=== PATIENT | female | born 1955 | race Caucasian/White ===

== ENCOUNTER → 2016-07-01 | Day surgery (SDC) | payer MEDICARE ==
[~2016-07-01] VITALS: Ht 165.1 cm; Wt 66.2 kg
[~2016-07-01] MED LIST: AMBIEN5 MG ORAL; AMITRIPTYLINE75 MG ORAL; ATORVASTATIN CA40 MG ORAL; BETHANECHOL CHL25 MG ORAL; Bupivacaine 0.25% Inj 30ml INJ ONE; DILAUDID1 MG/1 ML IV; Depo-Medrol 40mg Inj IARTIC ONE; Depo-Medrol 80mg Vial ONE; HYQVIA IV; LEXAPRO20 MG ORAL; METFORMIN HCL500 M1 ORAL; METHADONE HCL5 MG PO; XANAX1 MG ORAL
--- NOTE | 2016-07-01 09:09 | Short Stay Surgery H&P ---
History of Present Illness History of Present Illness HPI Josefina Hamilton is a 60 year old female who was admitted on for Ddd Cervical With Radiculopathy Patient History Allergies: Coded Allergies: PENICILLINS (Verified Allergy, Unknown, 07/01/16) PAST MEDICAL HISTORY: (1) Chronic pain (2) Cervical spinal stenosis (3) Cervical radiculopathy Past Surgeries: Social History: Medication History Scheduled Amitriptyline HCl (Elavil*), 150 MG ORAL BEDTIME, (Reported) Atorvastatin Calcium* (Atorvastatin Calcium*), 40 MG ORAL BEDTIME, (Reported) Bethanechol Chl* (Bethanechol Chloride*), 25 MG ORAL BID, (Reported) Escitalopram Oxalate* (Lexapro*), 20 MG ORAL DAILY, (Reported) Hydromorphone Hcl (Dilaudid), 2 MG IV PRN, (Reported) IgG/Hyaluronidase,Recombinant (Hyqvia 5 gm/400 Unit Vial), 5 GM IV Q3WK, ( Reported) Metformin Hcl* (Metformin Hcl*), 500 MG ORAL TWICE A DAY, (Reported) Methadone Hcl* (Methadone*), 5 MG PO DAILY, (Reported) Scheduled PRN Alprazolam* (Xanax*), 1 TAB ORAL TID PRN for PRN Agitation/Anxiety, (Reported) Zolpidem Tartrate* (Ambien*), 5 MG ORAL BEDTIME PRN for Insomnia, (Reported) Physical Exam Skin: normal HENT: normal Heart: normal Lungs: normal Abdomen: normal Extremities: normal Genitourinary: normal Plan Plan of Care cervical epidural steroid injection under fluoroscopy Preop Interventions MRI cervical spine pt, ptt, cbc with diff (reviewed) Final Diagnosis: (1) Degenerative disc disease, cervical (2) Cervical spinal stenosis (3) Chronic pain (4) Cervical radiculopathy Attestation Are the patient's medical conditions optimized for surgery? Attestation Response: yes YOHANA ARZATE Jul 01, 2016 09:09
[2016-07-01 09:30] VITALS: BP 160/81
[2016-07-01 10:30] VITALS: BP 137/92
--- NOTE | 2016-07-01 10:35 | Discharge Instructions ---
Discharge Instructions Discharge Instructions Call MD/Return to Hospital if: bleeding, swelling, fever, weakness, numbness Diet: no concentrated sweets, regular Resume Normal Activity?: Yes Activity: up ad janice For Surgical Patients Clean and Dry: surgical site Dressing Care: keep dry and clean May shower: Yes Contact your physician for: bleeding, pain, tenderness, redness, swelling, yellowish discharge in the op. site For Congestive Heart Failure Reminder Report to your physician any weight gain of 5 pounds or more in one week. YOHANA ARZATE Jul 01, 2016 10:35
--- NOTE | 2016-07-01 18:18 | Procedure Note ---
DATE OF PROCEDURE: 07/01/2016 PRE-PROCEDURE DIAGNOSIS: Degenerative disk disease, cervical with radiculopathy. POSTPROCEDURE DIAGNOSIS: Degenerative disk disease, cervical with radiculopathy. PROCEDURE PERFORMED: Cervical epidural steroid injection under fluoroscopy. SURGEON: Marie Hughes M.D. PROCEDURE IN DETAIL: The patient was warned of risks, benefits were discussed, and questions were answered. The patient indicated that she understood and accepted the risks including not only those involved in the risk of a blunt procedure itself but also those regarding the use of x-ray contrast agent, radiation, nerve damage, bleeding, and . The patient was transported to the radiology suite and placed in a prone position on the fluoroscopic compatible table with cervical spine flexed and forehead placed on a padded pillow. The skin was prepped with antiseptic solution at C5-C6 interspace. The spinous processes were located with the middle finger and index finger on either side and reconfirmed with palpation using a rocking motion in superior and inferior planes. The midline of C5-C6 interspace was identified by palpating the spinous processes above and below using lateral rocking motion to ensure that the needle entry site was exactly in the midline. A 1% lidocaine methylparaben free 1 mL was used to infiltrate the skin at midline. A 3-1/2 inch 20-gauge Tuohy needle was inserted through the previously anesthetized area. A syringe with preservative free normal saline was attached holding firmly to the half of epidural needle with the left hand and placed firmly against the patient's neck. Constant pressure was applied to the plunger of the syringe with the right hand. The needle and the syringe were continually advanced in a slow deliberate motion with the left hand. There was a loss of resistance. Gentle aspiration revealed no CSF or heme, and there was no paresthesia noted. A syringe containing 0.25% Marcaine and 80 mg of Depo-Medrol was instilled in the epidural space following confirmation with Isovue-300 to make an epidurogram. The needle was removed without incident while flushing with preservative free normal saline. There was no residual motor or sensory deficit appreciated. The patient tolerated the procedure well without incident. The patient was transported to short stay surgery for monitoring and given instructions for discharge when stable. Radiological technical assistance only was provided. Marie Hughes M.D. DR: NIGEL JOB#: [id number] CC:
== END | disposition home or self-care (01) ==
LOC: SDS 08:37
DX: M50.10 Cervical disc disorder with radiculopathy, unspecified cervical region (principal); M48.02 Spinal stenosis, cervical region; G89.29 Other chronic pain; Z88.0 Allergy status to penicillin
CPT/HCPCS: 62321; 77003; J1040; J3490

== ENCOUNTER → 2016-07-15 | Day surgery (SDC) | payer MEDICARE ==
[~2016-07-15] VITALS: Ht 165.1 cm; Wt 65.8 kg
[~2016-07-15] MED LIST changes: +Atropine Inj 1mg/10ml Syr IV PRN; -Bupivacaine 0.25% Inj 30ml INJ ONE; +Bupivacaine 0.5% Inj 30 ml vial INJ ONE; -Depo-Medrol 40mg Inj IARTIC ONE; +Depo-Medrol 40mg Inj INJ ONE; +Depo-Medrol 80mg Vial INJ ONE; -Depo-Medrol 80mg Vial ONE; +EPINEPHrine 1mg/10ml carp IV PRN; +Hydrocortisone 100mg Inj IV PRN; +Isovue-M 300 INJ ONE; +Lidocaine/Epi 1% 10ml vial INJ ONE
--- NOTE | 2016-07-15 09:10 | Short Stay Surgery H&P ---
History of Present Illness History of Present Illness HPI Josefina Hamilton is a 60 year old female who was admitted on for Ddd Cervical With Radiculopathy. She underwent a cervical epidural steroid injection on 2016. She is here for the second in a series of three . Patient History Allergies: Coded Allergies: PENICILLINS (Verified Allergy, Unknown, 07/01/16) PAST MEDICAL HISTORY: (1) Cervical spinal stenosis (2) Chronic pain (3) Cervical radiculopathy (4) Degenerative disc disease, cervical Past Surgeries: Social History: Medication History Scheduled Amitriptyline HCl (Elavil*), 150 MG ORAL BEDTIME, (Reported) Atorvastatin Calcium* (Atorvastatin Calcium*), 40 MG ORAL BEDTIME, (Reported) Bethanechol Chl* (Bethanechol Chloride*), 25 MG ORAL BID, (Reported) Escitalopram Oxalate* (Lexapro*), 20 MG ORAL DAILY, (Reported) Hydromorphone Hcl (Dilaudid), 2 MG IV PRN, (Reported) IgG/Hyaluronidase,Recombinant (Hyqvia 5 gm/400 Unit Vial), 5 GM IV Q3WK, ( Reported) Metformin Hcl* (Metformin Hcl*), 500 MG ORAL TWICE A DAY, (Reported) Scheduled PRN Alprazolam* (Xanax*), 1 TAB ORAL TID PRN for PRN Agitation/Anxiety, (Reported) Zolpidem Tartrate* (Ambien*), 5 MG ORAL BEDTIME PRN for Insomnia, (Reported) Discontinued Medications Methadone Hcl* (Methadone*), 5 MG PO DAILY, (Reported) Discontinued Reason: Pt stopped taking med Review of Systems Skeletal: Reports: osteroarthritis Genitourinary: Reports: other - interstial cystitis Neurologic: Reports: neuropathy, other - schwanoma Endocrine: Reports: diabetes - type 2 Physical Exam Vital Signs Last Vital Signs Date Time Temp Pulse Resp B/P Pulse Ox O2 Delivery O2 Flow Rate FiO2 07/15/16 09:12 98.4 92 18 136/92 98 Room Air Skin: normal HENT: normal Heart: normal Lungs: normal Abdomen: normal Extremities: abnormal - decreased strength left upper extremity Genitourinary: normal Plan Plan of Care cervical epidural steroid injection under fluoroscopy #2 Summary of Findings cervical stenosis with radiculopathy Final Diagnosis: (1) Cervical spinal stenosis (2) Chronic pain (3) Cervical radiculopathy (4) Degenerative disc disease, cervical Attestation Are the patient's medical conditions optimized for surgery? Attestation Response: yes YOHANA ARZATE Jul 15, 2016 09:10
[2016-07-15 09:12] VITALS: BP 136/92
[2016-07-15 10:05] VITALS: BP 161/104
[2016-07-15 10:20] VITALS: BP 143/92
--- NOTE | 2016-07-15 10:29 | Discharge Instructions ---
Discharge Instructions Discharge Instructions Follow up with: Dr. Hughes at [facility] Hematology/Oncology in one week Call MD/Return to Hospital if: there are any questions Diet: regular Resume Normal Activity?: Yes Activity: up ad janice For Surgical Patients Clean and Dry: surgical site Dressing Care: may change May shower: Yes Contact your physician for: bleeding, pain, tenderness, redness, swelling, yellowish discharge in the op. site For Congestive Heart Failure Reminder Report to your physician any weight gain of 5 pounds or more in one week. YOHANA HUGHES Jul 15, 2016 10:29
--- NOTE | 2016-07-15 16:18 | Procedure Note ---
DATE OF PROCEDURE: 07/15/2016 PREPROCEDURE DIAGNOSES: 1. Degenerative disease. 2. Cervical stenosis with radiculopathy. POSTPROCEDURE DIAGNOSES: 1. Degenerative disease. 2. Cervical stenosis with radiculopathy. PROCEDURE PERFORMED: Cervical epidural steroid injection under fluoroscopy. SURGEON: Marie Hughes M.D. PROCEDURE IN DETAIL: The patient was warned of the risks. Benefits were discussed. Questions were answered. The patient indicated that she understood and accepted the risks including not only those involving the risk of the block procedure itself but also those regarding use x-ray contrast agent, radiation, nerve damage, bleeding and . The patient was transported to the radiology suite and placed in the prone position on the fluoroscopic compatible table. The cervical spine flexed and forehead placed on a padded pillow. The skin was prepped with antiseptic solution at C5-C6 interspace. The spinous processes were located with a middle finger and index finger on either side and reconfirmed with palpation using a rocking motion in the superior and inferior planes. The midline of C5-C6 interspace was identified by palpating the spinous process above and below using a lateral rocking motion to ensure the needle entry was exactly in the midline. The syringe with 1% lidocaine methylparaben free, 1 mL was used to infiltrate the skin at the midline. At 3.5 inch 22-gauge Tuohy needle was inserted through the previously anesthetized area. A syringe with preservative free normal saline was attached, holding firmly to the hub of the epidural needle with the left hand placed firmly against the patient's neck. Constant pressure was applied to the plunger of the syringe with the right hand. The needle and syringe were continuously advanced in a slow deliberate motion with the left hand. There was loss of resistance. Gentle aspiration revealed no CSF or heme and there was no paresthesia noted. A syringe containing 0.5% Marcaine plus 40 mg of Depo-Medrol was instilled in the epidural space following conformation with Isovue-300 to make an epidurogram. The needle was removed without incident while flushing with preservative free normal saline. There were no residual motor or sensory deficits appreciated. The patient tolerated the procedure well without incident. The patient was transported to short stay surgery for monitoring and given instructions for discharge when stable. Radiological technical assistance only was provided. Marie Hughes M.D. DR: Cindy JOB#: [id number] CC:
== END | disposition home or self-care (01) ==
LOC: SDS 08:56
DX: M50.10 Cervical disc disorder with radiculopathy, unspecified cervical region (principal); M48.02 Spinal stenosis, cervical region; G89.29 Other chronic pain; M19.90 Unspecified osteoarthritis, unspecified site; N30.10 Interstitial cystitis (chronic) without hematuria; E11.9 Type 2 diabetes mellitus without complications; D36.10 Benign neoplasm of peripheral nerves and autonomic nervous system, unspecified; Z88.0 Allergy status to penicillin
CPT/HCPCS: 62321; 77003; J1030; J3490; 62320; 62322

== ENCOUNTER 2016-08-19 08:42 | Day surgery (SDC) | payer MEDICARE ==
--- NOTE | 2016-07-29 09:16 | Short Stay Surgery H&P ---
History of Present Illness History of Present Illness HPI Josefina Hamilton is a 60 year old female who was admitted on for DDD Cervical W/ Radiculopathy. She underwent a Cervical Epidural steroid injection under fluoroscopy X 2 with transient pain relief. Here for 3rd in a series of 3. Patient gives history of minor excoriation and trauma to her right hand yesterday causing prolonged bleeding with swelling, redness, increased temperature locally and ecchymosis. Denies pain at this writing. Patient is scheduled to received IGG in one week. Patient History Allergies: Coded Allergies: PENICILLINS (Verified Allergy, Unknown, 07/01/16) PAST MEDICAL HISTORY: (1) Cervical spinal stenosis (2) Chronic pain (3) Cervical radiculopathy (4) Degenerative disc disease, cervical Past Surgeries: Social History: Medication History Scheduled Amitriptyline HCl (Elavil*), 150 MG ORAL BEDTIME, (Reported) Atorvastatin Calcium* (Atorvastatin Calcium*), 40 MG ORAL BEDTIME, (Reported) Bethanechol Chl* (Bethanechol Chloride*), 25 MG ORAL BID, (Reported) Escitalopram Oxalate* (Lexapro*), 20 MG ORAL DAILY, (Reported) Hydromorphone Hcl (Dilaudid), 2 MG IV PRN, (Reported) IgG/Hyaluronidase,Recombinant (Hyqvia 5 gm/400 Unit Vial), 5 GM IV Q3WK, ( Reported) Metformin Hcl* (Metformin Hcl*), 500 MG ORAL TWICE A DAY, (Reported) Scheduled PRN Alprazolam* (Xanax*), 1 TAB ORAL TID PRN for PRN Agitation/Anxiety, (Reported) Zolpidem Tartrate* (Ambien*), 5 MG ORAL BEDTIME PRN for Insomnia, (Reported) Review of Systems Cardiovascular: Reports: other - hypercholesterolemia Respiratory: Reports: asthma, chronic bronchitis, other - wheezing, pneumonia Skeletal: Reports: other - bone cancer, back surgery, spinal disc disease, trauma Gastrointestinal: Reports: other - colitis, abdominal surgery Genitourinary: Reports: other - interstitial cystitis Physical Exam Skin: abnormal - erythematous,edematous,hot, dorsum of the right hand with local scattering of flat eccymotic lesions. no evidence of bleeding at this writing HENT: normal Heart: normal Lungs: normal Abdomen: normal Extremities: abnormal - right hand dorsal aspect with erythema and localized scattering flat ecchymotic lesions and edema, and hot Genitourinary: normal Plan Plan of Care reschedule CESB under fluoroscopy Preop Interventions CBC with diff, PT, PTT Summary of Findings right hand cellulitis following mild trauma, acute episode of prolonged bleeding , DDD Cervical with radiculopathy Final Diagnosis: (1) Cellulitis of right hand (2) History of coagulation defect (3) Degenerative disc disease, cervical (4) Cervical radiculopathy (5) Chronic pain (6) Cervical spinal stenosis Attestation Are the patient's medical conditions optimized for surgery? Attestation Response: YOHANA Castellanos Jul 29, 2016 09:16
--- NOTE | 2016-07-29 10:08 | Discharge Instructions ---
Discharge Instructions Discharge Instructions Follow up with: primary care physician, Dr. More Etienne [facility] at Discharge: outpatient therapy Activity: up ad janice Follow Up Orders follow up with Dr. Hughes in 2weeks. see Dr. Etienne LÓPEZ regarding cellulitis following mild trauma to right hand For Congestive Heart Failure Reminder Report to your physician any weight gain of 5 pounds or more in one week. YOHANA HUGHES Jul 29, 2016 10:08
[~2016-08-19] VITALS: Ht 165.1 cm; Wt 65.3 kg
[~2016-08-19 08:42] MED LIST changes: -Atropine Inj 1mg/10ml Syr IV PRN; -Bupivacaine 0.5% Inj 30 ml vial INJ ONE; -Depo-Medrol 40mg Inj INJ ONE; -Depo-Medrol 80mg Vial INJ ONE; -EPINEPHrine 1mg/10ml carp IV PRN; -Hydrocortisone 100mg Inj IV PRN; -Isovue-M 300 INJ ONE; -Lidocaine/Epi 1% 10ml vial INJ ONE
[2016-08-19] MEDS ORDERED: Depo-Medrol 40mg Inj IARTIC ONE (08:45)
[2016-08-19] MEDS ORDERED: Depo-Medrol 80mg Vial IARTIC ONE (08:45)
[2016-08-19] MEDS ORDERED: Bupivacaine 0.25% Inj 30ml INJ ONE ×2 (08:45→10:15)
[2016-08-19 09:16] VITALS: BP 123/83
--- NOTE | 2016-08-19 10:10 | Short Stay Surgery H&P ---
History of Present Illness History of Present Illness HPI Josefina Hamilton is a 60 year old female who was admitted on for Ddd Cerv W/ Radiculopathy Patient History Allergies: Coded Allergies: PENICILLINS (Verified Allergy, Unknown, 07/01/16) PAST MEDICAL HISTORY: (1) Cervical spinal stenosis (2) Chronic pain (3) Cervical radiculopathy (4) Degenerative disc disease, cervical (5) Cellulitis of right hand (6) History of coagulation defect Past Surgeries: Social History: Medication History Scheduled Amitriptyline HCl (Elavil*), 150 MG ORAL BEDTIME, (Reported) Atorvastatin Calcium* (Atorvastatin Calcium*), 40 MG ORAL BEDTIME, (Reported) Bethanechol Chl* (Bethanechol Chloride*), 25 MG ORAL BID, (Reported) Escitalopram Oxalate* (Lexapro*), 20 MG ORAL DAILY, (Reported) Hydromorphone Hcl (Dilaudid), 2 MG IV PRN, (Reported) IgG/Hyaluronidase,Recombinant (Hyqvia 5 gm/400 Unit Vial), 5 GM IV Q3WK, ( Reported) Metformin Hcl* (Metformin Hcl*), 500 MG ORAL TWICE A DAY, (Reported) Scheduled PRN Alprazolam* (Xanax*), 1 TAB ORAL TID PRN for PRN Agitation/Anxiety, (Reported) Zolpidem Tartrate* (Ambien*), 5 MG ORAL BEDTIME PRN for Insomnia, (Reported) Review of Systems Cardiovascular: Reports: other - hyperlipidemia Respiratory: Reports: asthma, chronic bronchitis Skeletal: Reports: other - bone cancer Gastrointestinal: Reports: other - colitis Genitourinary: Reports: other - interstitial cystitis Hematologic: Reports: coagulopathy - intermittent Physical Exam Vital Signs Last Vital Signs Date Time Temp Pulse Resp B/P Pulse Ox O2 Delivery O2 Flow Rate FiO2 08/19/16 09:16 98.2 86 18 123/83 100 Room Air Labs ptt 28 pt 9.7 inr 1.0 Skin: abnormal - ecchymotic lesions on body throughout HENT: normal - wears corrective lenses Heart: normal Lungs: normal Abdomen: normal Extremities: normal Genitourinary: normal Plan Plan of Care cervical epidural steroid injection under fluoroscopy Final Diagnosis: (1) Cervical spinal stenosis (2) Chronic pain (3) Cervical radiculopathy (4) Degenerative disc disease, cervical (5) Cellulitis of right hand (6) History of coagulation defect Attestation Are the patient's medical conditions optimized for surgery? Attestation Response: yes YOHANA ARZATE August 19, 2016 10:10
[2016-08-19] MEDS ORDERED: Depo-Medrol 40mg Inj ONE (10:14)
[2016-08-19 10:45] VITALS: BP 138/87
--- NOTE | 2016-08-19 10:51 | Discharge Instructions ---
Discharge Instructions Discharge Instructions Follow up with: dr. indira arzate at [facility] Diet: regular Resume Normal Activity?: Yes Activity: up ad janice For Surgical Patients Clean and Dry: surgical site Dressing Care: may change May shower: Yes Contact your physician for: bleeding, pain, tenderness, redness, swelling, yellowish discharge in the op. site For Congestive Heart Failure Reminder Report to your physician any weight gain of 5 pounds or more in one week. INDIRA ARZATE August 19, 2016 10:51
--- NOTE | 2016-08-19 18:28 | Procedure Note ---
DATE OF PROCEDURE: 08/19/2016 PRE-PROCEDURE DIAGNOSIS: Degenerative disk disease, cervical with radiculopathy. POST-PROCEDURE DIAGNOSIS: Degenerative disk disease, cervical with radiculopathy. PROCEDURE PERFORMED: Cervical epidural steroid injection under fluoroscopy. SURGEON: Marie Hughes M.D. PROCEDURE IN DETAIL: The patient was warned of the risks, benefits were discussed, and questions were answered. The patient indicated that she understood and accept the risks including not only those involving the risk of the procedure itself, but also those regarding the use x-ray contrast agent, radiation, nerve damage, bleeding and . The patient was transported to the radiology suite and placed in the prone position on the fluoroscopic compatible table. The cervical spine was flexed and forehead placed on a padded pillow. The skin was prepped with antiseptic solution at C5-C6 interspace. The spinous processes were located with middle finger and index finger on either side and reconfirmed with palpation using a rocking motions in superior and inferior planes. The midline of C5-C6 interspace was identified by palpating the spinous process above and below using lateral rocking motion to ensure needle entry was exactly in the midline. A syringe with 1% lidocaine methylparaben free 1 mL was used to infiltrate the skin at the midline. A 3.5 inch 22-gauge two needle was inserted through the previously anesthetized area. A glass syringe with preservative free normal saline was attached holding firmly at the hub of the epidural needle with the left hand placed firmly against the patient's neck. Constant pressure was applied to the plunger of the syringe with the right hand. The needle and syringe were continually advanced in a slow deliberate motion with the left hand. There was a loss of resistance. Gentle aspiration revealed no CSF or heme and there was no paresthesia noted. Syringe containing 0.25% Marcaine plus 80 mg of Depo-Medrol was instilled in the epidural space following confirmation with Isovue-300 to make an epidurogram. The needle was removed without incident while flushing with preservative free normal saline. There was no residual motor or sensory deficits appreciated. The patient tolerated the procedure well without incident. The patient was transported to short stay surgery for monitoring and given instructions for discharge when stable. Radiological technical assistance only was provided. Marie Hughes M.D. DR: JERALD JOB#: [id number] CC: LUCERO
--- NOTE | 2016-08-21 10:53 | Diagnostic Imaging Report ---
Indication: Neck pain Comparison: None Findings: Fluoroscopic imaging was utilized in real-time during a cervical epidural procedure performed by Dr.Wynn Butler. Total fluoroscopic time 7.2 seconds. Impression: Intraprocedural imaging
== END 2016-08-19 11:05 | disposition home or self-care (01) ==
LOC: SUR 08:42 → RAD 08:42
DX: M50.10 Cervical disc disorder with radiculopathy, unspecified cervical region (principal); M48.02 Spinal stenosis, cervical region; G89.29 Other chronic pain; E78.00 Pure hypercholesterolemia, unspecified; J45.909 Unspecified asthma, uncomplicated; J42 Unspecified chronic bronchitis; D68.9 Coagulation defect, unspecified; Z87.19 Personal history of other diseases of the digestive system; Z87.01 Personal history of pneumonia (recurrent); Z88.0 Allergy status to penicillin
CPT/HCPCS: 62321; 77003; J1030; J1040; J3490

== ENCOUNTER 2017-07-31 10:40 | Outpatient (CLI) | payer MEDICARE ==
[~2017-07-31] VITALS: Ht 162.6 cm; Wt 65.3 kg
[2017-07-31 11:10] VITALS: BP 134/59
[2017-07-31 11:37] LABS: BASOPHILS % (AUTO) 1.4 % (0.0-2.0); HEMATOCRIT 36.5 % (37.0-47.0); HEMOGLOBIN 11.7 G/DL (12.0-16.0); LYMPHOCYTES % (AUTO) 21.5 % (20.0-45.0); MEAN CORPUSCULAR VOLUME 80 FL (80-99); NEUTROPHILS % (AUTO) 64.1 % (45.0-75.0); PLATELET COUNT 281 K/UL (150-450); RED BLOOD COUNT 4.58 M/UL (4.20-5.40); WHITE BLOOD COUNT 6.5 K/UL (4.8-10.8)
[2017-07-31] MEDS ORDERED: LORazepam Inj 2mg/ml 1ml IV ONE (11:45)
[2017-07-31 11:48] LABS: INR 0.9 (0.9-1.1)
[2017-07-31] MEDS ORDERED: Depo-Medrol 80mg Vial IARTIC ONE (12:00)
[2017-07-31] MEDS ORDERED: Depo-Medrol 40mg Inj IARTIC ONE (12:00)
[2017-07-31] MEDS ORDERED: Bupivacaine 0.5% Inj 30 ml vial INJ ONE (12:00)
[2017-07-31] MEDS ORDERED: Isovue-M 300 15ml INJ ONE (12:00)
[2017-07-31 13:15] VITALS: BP 124/55
--- NOTE | 2017-07-31 13:35 | Discharge Instructions ---
Discharge Instructions Discharge Instructions Follow up with: dr arzate Call MD/Return to Hospital if: bleeding or pain at injection site Diet: diabetic calorie control Resume Normal Activity?: Yes Activity: up ad janice For Surgical Patients Clean and Dry: surgical site Dressing Care: may change May shower: Yes Contact your physician for: bleeding, pain, tenderness, redness, swelling, yellowish discharge in the op. site For Congestive Heart Failure Reminder Report to your physician any weight gain of 5 pounds or more in one week. YOHANA ARZATE Jul 31, 2017 13:35
--- NOTE | 2017-08-02 21:30 | Procedure Note ---
DATE OF PROCEDURE: 07/31/2017 PRE-PROCEDURE DIAGNOSIS: Degenerative disc disease, cervical with radiculopathy. POST-PROCEDURE DIAGNOSIS: Degenerative disc disease, cervical with radiculopathy. PROCEDURE PERFORMED: Cervical epidural steroid injection under fluoroscopy. SURGEON: Marie Hughes M.D. PROCEDURE IN DETAIL: The patient was warned of the risks, benefits were discussed, and questions were answered. The patient indicated that she understood and accepted the risks including not only those involving the risks of procedure itself, but also those regarding the use of x-ray contrast agent, radiation, nerve damage, bleeding, and . The patient was transported to the radiology suite and placed in the prone position on the fluoroscopic compatible table. The cervical spine was flexed and the forehead placed on a padded pillow. The skin was prepped with antiseptic solution at C5-C6 interspace. The spinous processes were located with the middle finger and index finger on either side and reconfirmed with palpation using a rocking motion in the superior and inferior plane. The midline of C5-C6 interspace was identified by palpating the spinous processes above and below using lateral rocking motion to ensure the needle entry was exactly in the midline. A syringe with 1% lidocaine methylparaben free was used to infiltrate the skin at the midline. A 3.5 inch 22-gauge Tuohy needle was inserted through the previously anesthetized area. The glass syringe with preservative free normal saline was attached holding firmly at the hub of the epidural needle with the left hand firmly placed against the patient's neck. Constant pressure was applied to the plunger of the syringe with the right hand. The needle and syringe were continually advanced in a slow deliberate motion with the left hand. There was a loss of resistance. Gentle aspiration revealed no CSF or heme and there was no paresthesia noted. The syringe containing 1ml 0.5% Marcaine plus 120 mg of Depo-Medrol was instilled in the epidural space after confirmation of location with Isovue-300 to make an epidurogram. The needle was removed without incident while flushing with preservative free normal saline. There was no residual motor or sensory deficits appreciated. The patient received 2mg lorazepam intravenously in 1mg alliquota during the procedure and tolerated the procedure well without incident. The patient was transported to short stay surgery for monitoring and given instructions for discharge when stable. Radiological technical assistance only was provided. Marie Hughes M.D. DR: NAVIN JOB#: [id number] CC: LUCERO
== END 2017-07-31 13:35 | disposition home or self-care (01) ==
LOC: SUR 10:40
DX: M50.10 Cervical disc disorder with radiculopathy, unspecified cervical region (principal); M54.2 Cervicalgia; M79.602 Pain in left arm; E11.9 Type 2 diabetes mellitus without complications; I10 Essential (primary) hypertension; Z88.0 Allergy status to penicillin; Z90.89 Acquired absence of other organs; Z98.84 Bariatric surgery status
CPT/HCPCS: 36415; 62320; 77003; 85025; 85610; 85730

== ENCOUNTER 2017-11-21 10:45 | Outpatient (CLI) | payer MEDICARE ==
[~2017-11-21] VITALS: Ht 162.6 cm; Wt 64.4 kg
[2017-11-21] MEDS ORDERED: ASPIR 8181 MG ORAL (11:10)
[2017-11-21] MEDS ORDERED: CYMBALTA60 MG ORAL (11:14)
[2017-11-21] MEDS ORDERED: METFORMIN HCL500 M1 ORAL (11:14)
[2017-11-21] MEDS ORDERED: ATORVASTATIN CA40 MG ORAL (11:14)
[2017-11-21] MEDS ORDERED: CALCIUM600 M1 PO (11:14)
[2017-11-21] MEDS ORDERED: LINZESS145 MCG PO (11:14)
[2017-11-21 11:29] LABS: INR 0.9 (0.9-1.1)
[2017-11-21 11:30] LABS: BASOPHILS % (AUTO) 1.8 % (0.0-2.0); EOSINOPHILS % (AUTO) 2.3 % (0.0-3.0); HEMATOCRIT 43.5 % (37.0-47.0); HEMOGLOBIN 13.8 G/DL (12.0-16.0); LYMPHOCYTES % (AUTO) 25.7 % (20.0-45.0); MEAN CORPUSCULAR VOLUME 83 FL (80-99); MONOCYTES % (AUTO) 8.4 % (1.0-10.0); NEUTROPHILS % (AUTO) 61.8 % (45.0-75.0); PLATELET COUNT 265 K/UL (150-450); RED BLOOD COUNT 5.26 M/UL (4.20-5.40); RED CELL DISTRIBUTION WIDTH 14.6 % (11.6-14.8); WHITE BLOOD COUNT 5.5 K/UL (4.8-10.8)
== END 2017-11-21 11:35 | disposition home or self-care (01) ==
LOC: RAD 10:45
DX: M50.30 Other cervical disc degeneration, unspecified cervical region (principal)
CPT/HCPCS: 36415; 85025; 85610; 85730

== ENCOUNTER 2017-12-19 08:15 | Day surgery (SDC) | payer MEDICARE ==
[~2017-12-19] VITALS: Ht 165.1 cm; Wt 65.3 kg
[~2017-12-19 08:15] MED LIST changes: +ASPIR 8181 MG ORAL; +CALCIUM600 M1 PO; +CYMBALTA60 MG ORAL; +LINZESS145 MCG PO
[2017-12-19 09:25] VITALS: BP 122/68
[2017-12-19] MEDS ORDERED: Isovue-M 300 15ml INJ ONE (09:45)
[2017-12-19] MEDS ORDERED: Bupivacaine 0.5% Inj 30 ml vial INJ ONE ×2 (09:45→10:10)
[2017-12-19] MEDS ORDERED: Lidocaine 1% MPF 10mg/ml 5ml INJ ONE (09:45)
[2017-12-19] MEDS ORDERED: LORazepam Inj 2mg/ml 1ml IV ONE (09:45)
[2017-12-19 09:50] LABS: EOSINOPHILS % (AUTO) 1.8 % (0.0-3.0); HEMATOCRIT 39.3 % (37.0-47.0); HEMOGLOBIN 12.4 G/DL (12.0-16.0); LYMPHOCYTES % (AUTO) 26.3 % (20.0-45.0); MEAN CORPUSCULAR VOLUME 82 FL (80-99); MONOCYTES % (AUTO) 9.1 % (1.0-10.0); NEUTROPHILS % (AUTO) 61.8 % (45.0-75.0); PLATELET COUNT 242 K/UL (150-450); RED BLOOD COUNT 4.77 M/UL (4.20-5.40); WHITE BLOOD COUNT 5.8 K/UL (4.8-10.8)
[2017-12-19] MEDS ORDERED: LORazepam Inj 2mg/ml 1ml ONE (09:53)
[2017-12-19 09:56] LABS: INR 0.9 (0.9-1.1)
[2017-12-19] MEDS ORDERED: Depo-Medrol 80mg Vial ONE (09:56)
[2017-12-19] MEDS ORDERED: Depo-Medrol 40mg Inj ONE (09:56)
[2017-12-19] MEDS ORDERED: Lidocaine 1% MPF 10mg/ml 5ml ONE (09:58)
[2017-12-19] MEDS ORDERED: Depo-Medrol 80mg Vial IARTIC ONE (10:00)
[2017-12-19] MEDS ORDERED: Depo-Medrol 40mg Inj IARTIC ONE (10:00)
[2017-12-19 10:45] VITALS: BP 142/74
--- NOTE | 2017-12-19 17:30 | Procedure Note ---
DATE OF PROCEDURE: 12/19/2017 PRE-PROCEDURE DIAGNOSIS: Degenerative disc disease, cervical with radiculopathy. POST-PROCEDURE DIAGNOSIS: Degenerative disc disease, cervical radiculopathy. PROCEDURE PERFORMED: Cervical epidural steroid injection under fluoroscopy. SURGEON: Marie Hughes M.D. PROCEDURE IN DETAIL: The patient was warned of the risks. Benefits were discussed. Questions were answered. The patient indicated that she understood and accepted the risks including not only those involving the risk of procedure itself, but also those regarding the use of x-ray contrast agents, radiation, nerve damage, bleeding, and . The patient was transported to the radiology suite and placed in the prone position on a fluoroscopic compatible table. The cervical spine was flexed and the forehead was placed on a padded pillow. The skin was prepped with antiseptic solution at C5-C6 interspace. Spinous processes were located with a middle finger and index finger on either side and reconfirmed with palpation using a rocking motion in superior and inferior planes. The midline of C5-C6 interspace was identified by palpating the spinous processes above and below using a lateral rocking motion to ensure needle entry was exactly in the midline. The syringe with 1% lidocaine methylparaben free was used to infiltrate the skin at midline. A 3.5 inch 22-gauge Tuohy needle was inserted through the previously anesthetized area. A glass syringe with preservative free normal saline was attached holding firmly at the hub of the epidural needle with the left hand firmly placed against the patient's neck. Constant pressure was applied to the plunger of the syringe with the right hand. The needle and syringe were continually advanced in a slow deliberate motion with the left hand. There was a loss of resistance. Gentle aspiration revealed no CSF or heme and there was no paresthesia noted. A syringe containing 1 mL of 0.5% Marcaine plus 120 mg of Depo-Medrol was instilled into the epidural space after confirmation of location with Isovue-300 to make an epidurogram. The needle was removed without incident while flushing with preservative free normal saline. There was no residual motor or sensory deficits appreciated. The patient received a total of 4 mg of lorazepam IV in 1 mg aliquots during the procedure and tolerated the procedure well without incident. The patient was transported to short stay surgery for monitoring and given instructions for discharge when stable. Radiological technical assistance only was provided. Marie Hughes M.D. DR: NAVIN JOB#: [id number] CC: [email or web address]
== END 2017-12-19 11:00 | disposition home or self-care (01) ==
LOC: SUR 08:15 → RAD 08:15
DX: M50.122 Cervical disc disorder at C5-C6 level with radiculopathy (principal); J44.9 Chronic obstructive pulmonary disease, unspecified; E11.9 Type 2 diabetes mellitus without complications; G62.9 Polyneuropathy, unspecified; Z98.84 Bariatric surgery status; Z88.0 Allergy status to penicillin; Z79.82 Long term (current) use of aspirin
CPT/HCPCS: 36415; 62321; 82962; 85025; 85610; 85730

== ENCOUNTER 2018-01-01 11:29 | Outpatient (CLI) | payer MEDICARE ==
[~2018-01-01] VITALS: Ht 162.6 cm; Wt 65.3 kg
[2018-01-01 10:30] VITALS: BP 128/82
[2018-01-01] MEDS ORDERED: Depo-Medrol 40mg Inj IARTIC SCH (11:45)
[2018-01-01] MEDS ORDERED: Isovue-M 300 15ml INJ ONE (11:45)
[2018-01-01] MEDS ORDERED: Bupivacaine 0.5% Inj 30 ml vial INJ SCH (11:45)
[2018-01-01] MEDS ORDERED: LORazepam Inj 2mg/ml 1ml IV SCH ×2 (11:45)
[2018-01-01] MEDS ORDERED: Lidocaine 1% MPF 10mg/ml 5ml IM SCH (11:45)
[2018-01-01] MEDS ORDERED: Depo-Medrol 80mg Vial IARTIC SCH (11:45)
[2018-01-01] MEDS ORDERED: LORazepam Inj 2mg/ml 1ml ONE ×2 (12:27→12:28)
[2018-01-01 14:30] VITALS: BP 132/76
--- NOTE | 2018-01-01 14:39 | Discharge Instructions ---
Discharge Instructions Discharge Instructions Follow up with: DR. HUGHES AT CLINIC Call MD/Return to Hospital if: WEAKNESS, NUMBNESS Diet: regular Resume Normal Activity?: Yes Activity: up ad janice For Surgical Patients Clean and Dry: surgical site Dressing Care: may change May shower: Yes Contact your physician for: bleeding, pain, tenderness, redness, swelling, yellowish discharge in the op. site, other - WEAKNESS For Congestive Heart Failure Reminder Report to your physician any weight gain of 5 pounds or more in one week. Marie Hughes MD Jan 01, 2018 14:39
--- NOTE | 2018-01-02 07:15 | Procedure Note ---
DATE OF PROCEDURE: 01/02/2018 PRE-PROCEDURE DIAGNOSIS: Degenerative disk disease, cervical with radiculopathy. POST-PROCEDURE DIAGNOSIS: Degenerative disk disease, cervical with radiculopathy. PROCEDURE PERFORMED: Cervical epidural steroid injection under fluoroscopy. SURGEON: Marie Hughes M.D. PROCEDURE IN DETAIL: The patient was warned of the risks, benefits were discussed, questions were answered. The patient indicated that she understood and accepted the risks including, not only those involving the risk of the procedure itself, but also those regarding the use of x-ray contrast agent, radiation, nerve damage, bleeding, and . The patient was transported to the radiology suite and placed in the prone position on the fluoroscopic compatible table. The cervical spine was flexed and the forehead was placed on the padded pillow. The skin was prepped with antiseptic solution at C5-C6 interspace. The spinous processes were located with the middle finger and index finger on either side and we confirmed with palpation using a rocking motion in the superior and inferior planes. The midline of C5-C6 interspace was identified by palpating the spinous processes above and below using a lateral rocking motion to ensure the needle entry was exactly in the midline. A syringe with 1% lidocaine methylparaben free was used to infiltrate the skin at the midline and 3.5 inch 22-gauge Tuohy needle was inserted through the previously anesthetized area. A glass syringe with preservative-free normal saline was attached holding firmly to the hub of the epidural needle with the left hand firmly placed against the patient's neck. Constant pressure was applied to the plunger of the syringe with the right hand. The needle and syringe were continually advanced in the slow deliberate motion with the left hand. There was a loss of resistance. Gentle aspiration revealed no CSF or heme and there was no paresthesia noted. The syringe containing 1 mL of 0.5% bupivacaine plus 120 mg of Depo-Medrol was instilled in the epidural space after confirmation of location was Isovue-300 to make an epidurogram. The needle was removed without incident while flushing with preservative-free normal saline. There was no residual motor or sensory deficit appreciated. The patient received 2 mg of lorazepam intravenously during the procedure and tolerated the procedure well without incident. The patient was transported to short stay surgery for monitoring and given instructions for discharge when stable. Radiological technical assistance only was provided. Marie Hughes M.D. DR: PAYTON JOB#: [id number] CC:
== END 2018-01-01 14:45 | disposition home or self-care (01) ==
LOC: RAD 11:29
DX: M50.10 Cervical disc disorder with radiculopathy, unspecified cervical region (principal)
CPT/HCPCS: 62321; 82962; J1030; J1040; J3490; Q9967

== ENCOUNTER 2018-01-16 08:00 | Outpatient (CLI) | payer MEDICARE ==
[~2018-01-16] VITALS: Ht 165.1 cm; Wt 65.3 kg
[2018-01-16 08:28] VITALS: BP 134/72
[2018-01-16] MEDS ORDERED: Depo-Medrol 80mg Vial IARTIC ONE (09:15)
[2018-01-16] MEDS ORDERED: Bupivacaine 0.5% Inj 30 ml vial INJ ONE (09:15)
[2018-01-16] MEDS ORDERED: Depo-Medrol 40mg Inj IARTIC ONE (09:15)
[2018-01-16] MEDS ORDERED: Lidocaine 1% MPF 10mg/ml 5ml INJ ONE (09:15)
[2018-01-16] MEDS ORDERED: Isovue-M 300 15ml INJ ONE (09:15)
[2018-01-16] MEDS ORDERED: LORazepam Inj 2mg/ml 1ml IV ONE (09:30)
[2018-01-16 09:51] LABS: INR 0.9 (0.9-1.1)
--- NOTE | 2018-01-16 10:40 | Discharge Instructions ---
Discharge Instructions Discharge Instructions Follow up with: dr. hughes Diet: regular Resume Normal Activity?: Yes Activity: up ad janice For Surgical Patients Clean and Dry: surgical site Dressing Care: may change May shower: Yes Contact your physician for: bleeding, pain, tenderness, redness, swelling, yellowish discharge in the op. site For Congestive Heart Failure Reminder Report to your physician any weight gain of 5 pounds or more in one week. Marie Hughes MD Jan 16, 2018 10:40
[2018-01-16 10:45] VITALS: BP 141/77
--- NOTE | 2018-01-16 23:00 | Procedure Note ---
DATE OF PROCEDURE: 01/16/2018 PRE-PROCEDURE DIAGNOSIS: Degenerative disk disease, cervical with radiculopathy. POSTPROCEDURE DIAGNOSIS: Degenerative disk disease, cervical with radiculopathy. PROCEDURE PERFORMED: Cervical epidural steroid injection under fluoroscopy. SURGEON: Marie Hughes M.D. PROCEDURE IN DETAIL: The patient was warned of the risks, benefits were discussed, questions were answered. The patient indicated that she understood and accepted risks including, not only those involving the risk of the procedure itself, but also those regarding use of x-ray contrast agent, radiation, nerve damage, bleeding, and . The patient was transported to the radiology suite and placed in the prone position on a fluoroscopic compatible table. the cervical spine was flexed and the forehead was placed on a padded pillow. The skin was prepped with antiseptic solution at the C4-C5 interspace. The spinous processes were located with the middle finger and index finger on either side and confirmed with palpation using a rocking motion in the superior and inferior planes. The midline of C4-C5 interspace was identified by palpating the spinous processes above and below using a lateral rocking motion to ensure the needle entry was exactly in the midline. A syringe with 1% lidocaine methylparaben free was used to infiltrate the skin at midline and a 3.5 inch 22-gauge Tuohy needle was inserted through the previously anesthetized area. A glass syringe with preservative-free normal saline was attached holding firmly to the hub of the epidural needle with the left hand firmly placed against the patient's neck. Constant pressure was applied to the plunger of the syringe with the right hand. The needle and syringe were continually advanced in a slow deliberate motion with the left hand. There was a loss of resistance. Gentle aspiration revealed no CSF or heme, and there was no paresthesia noted. The syringe containing 1 mL of 0.5% bupivacaine plus 120 mg of Depo-Medrol was instilled in the epidural space after confirmation of location with Isovue M-300 to make an epidurogram. The needle was removed without incident while flushing with preservative free normal saline. There was no residual motor or sensory deficit appreciated. The patient received 4 mg of lorazepam intravenously during the procedure and tolerated the procedure well without incident. The patient was transferred to short stay surgery for monitoring, given instructions for discharge when stable. Radiological technical assistance only was provided. Marie Hughes M.D. DR: MIGUEL A JOB#: [id number] CC: LUCERO
== END 2018-01-16 10:30 | disposition home or self-care (01) ==
LOC: RAD 08:00
DX: M50.10 Cervical disc disorder with radiculopathy, unspecified cervical region (principal)
CPT/HCPCS: 36415; 62321; 85610; 85730; J1030; J1040; J3490; Q9967